=== PATIENT | female | born 1985 | race Caucasian/White ===

== ENCOUNTER 2016-10-02 07:39 | Emergency (ER) | payer OTHER ==
[~2016-10-02] VITALS: Ht 160 cm; Wt 58.6 kg
[~2016-10-02 07:39] MED LIST: BCPILLS PO; PROP10TA7 PO
[2016-10-02 07:44] VITALS: BP 135/88; PULSE 95; TEMP 36.7; O2SAT 100; Ht 160 cm; Wt 58.6 kg
[2016-10-02] MEDS ORDERED: PROPARACAINE HCL 0.5% OP SOLN 15 ML BTL ONE (07:55)
[2016-10-02] MEDS ORDERED: ERYTHROMYCIN OP OINT 5 MG/GM 3.5 GM TUBE OP STA (08:05)
--- NOTE | 2016-10-02 08:08 | EMERGENCY ROOM VISIT NOTE ---
ED Visit Note First contact with patient: 07:49 CHIEF COMPLAINT: Eye injury HISTORY OF PRESENT ILLNESS: This patient sustained an eye injury last night when she and her or laying boards.she states that dust flew up and got into her left eye. Since then there has been a constant moderate pain and irritation, redness and tearing in the eye. There is a mild blurring of vision at times and light bothers the eye. The vision has not been decreased over all. Her tetanus is up-to-date. She denies any history of 5 problems. REVIEW OF SYSTEMS: Head: No headache, injury or neck pain. Neck: No pain, stiffness, or swelling. Neurological: No headache, new changes in mental status, vertigo, focal weakness, numbness. PMH: The patient is healthy; there is no significant medical or surgical history. SOCIAL HISTORY: Patient lives at home. PHYSICAL EXAM: Vital Signs: Reviewed Nurse's notes. GENERAL: This is a healthy- appearing person who is uncomfortable from the eye problem. The pupils are round, equal, and react to light. EOMs are full. There is discharge of clear tears from the injured eye which is injected. There is no foreign body visible under the eyelid even after lid eversion. No foreign body was seen embedded in the cornea. The cornea was clear and no hyphema was seen. Fluorescein uptake was observed with ultraviolet light and reveals multiple fine, linear, superficial abrasions. EMERGENCY DEPARTMENT COURSE: The patient was seen and examined. There does not appear to be foreign body in the eye. She did flush the eye last night. She does have multiple superficial corneal abrasions. She'll be placed on erythromycin ointment. She should follow-up with an eye doctor in 24-48 hours for recheck. She should return with worsening symptoms. Problem List Medical Problems: (1) Migraine Status: Chronic Current/Historical Medications Scheduled Control Pills ( Control Pills), 1 TAB PO DAILY Allergies Coded Allergies: No Known Allergies (Unverified , 10/02/16) Vital Signs Date Time Temp Pulse Resp B/P Pulse Ox O2 Delivery O2 Flow Rate FiO2 10/02/16 07:44 36.7 95 18 135/88 100 Room Air Medications Administered Medications (Trade) Dose Ordered Sig/Thiago Route Start Time Stop Time Status Last Admin Dose Admin Erythromycin (Erythromycin Oph Oint) 1 appln TID STAT OP 10/02/16 08:05 10/02/16 08:06 DC 10/02/16 08:16 1 APPLN Departure Information Impression Primary Impression: Corneal abrasion Dispostion Home / Self-Care Condition GOOD Referrals Lillian Rios D.ODes (PCP) Anthony López MD Patient Instructions ED Eye Injury Corneal Abrasion, [facility] Additional Instructions Erythromycin ointment 1/4 cm ribbon to the lower eyelid every 6 hours for 5 days. Use Ibuprofen 600 mg or Tylenol 1000 mg every 6 hours as needed for pain. No more than 4 g of Tylenol in 24 hours. Return to the ED or see your family doctor or eye doctor in 24-48 hours for a recheck. Return to the ED for increasing pain or changes in vision. Problem Qualifiers Primary Impression: Corneal abrasion Encounter type: initial encounter Laterality: left Qualified Codes: S05.02XA - Injury of conjunctiva and corneal abrasion without foreign body, left eye, initial encounter
== END 2016-10-02 08:15 | disposition home or self-care (01) ==
LOC: C.EDB 07:41
DX: S05.02XA Injury of conjunctiva and corneal abrasion without foreign body, left eye, initial encounter (principal); X58.XXXA Exposure to other specified factors, initial encounter; Z79.3 Long term (current) use of hormonal contraceptives

== ENCOUNTER → 2017-04-11 | Outpatient (CLI) | payer OTHER ==
[~2017-04-11] MED LIST changes: -PROP10TA7 PO
== END | disposition home or self-care (01) ==
LOC: C.PAPS 09:24
PROVIDERS: ATTEND Obstetrics & Gynecology
DX: Z12.4 Encounter for screening for malignant neoplasm of cervix (principal)

== ENCOUNTER → 2017-08-09 | Outpatient (CLI) | payer OTHER ==
[2017-08-09 10:12] LABS: BLOOD UREA NITROGEN 10 mg/dl (7-18); CALCIUM 8.9 mg/dl (8.5-10.1); CARBON DIOXIDE 25 mmol/L (21-32); CHOLESTEROL 219 mg/dl (0-200); CREATININE 0.67 mg/dl (0.60-1.20); GLUCOSE 83 mg/dl (70-99); POTASSIUM 3.6 mmol/L (3.5-5.1); SODIUM 136 mmol/L (136-145)
[2017-08-09 10:17] LABS: LDL CHOLESTEROL CALCULATED 114 mg/dl
== END | disposition home or self-care (01) ==
LOC: C.LAB 09:01
PROVIDERS: ATTEND Family Medicine
DX: Z00.00 Encounter for general adult medical examination without abnormal findings (principal)